=== PATIENT | male | born 1985 | race Caucasian/White ===

== ENCOUNTER 2021-06-16 16:25 | Inpatient (IN) | payer MEDICAID ==
[~2021-06-16] VITALS: Ht 180.3 cm; Wt 183.7 kg
[2021-06-16] MEDS ORDERED: IOHEXOL-350 100 ML BOTTLE ONE (17:11)
[2021-06-16] MEDS ORDERED: SODIUM CHLORIDE 0.9% 1,000 ML IV ONE (17:15)
[2021-06-16] MEDS ORDERED: LABETALOL 5MG/ML SYR 20 MG/4 ML SYRINGE IV ONE (17:15)
[2021-06-16] MEDS ORDERED: INDOMETHACIN 25MG CAPSULE PO ONE (17:15)
[2021-06-16 17:22] LABS: BASOPHILS % 0.5 % (0.0-2.0); EOSINOPHILS % 0.5 % (0.0-5.0); HEMATOCRIT. 42.3 % (42.0-52.0); HEMOGLOBIN. 15.2 g/dL (14.0-18.0); LYMPHOCYTES % 19.3 % (20.0-50.0); MEAN CORPUSCULAR HEMOGLOBIN 31.1 pg (28.0-32.0); MEAN CORPUSCULAR VOLUME 86.7 fL (80.0-94.0); MEAN PLATELET VOLUME 9.3 fl (7.4-10.4); MONOCYTES % 3.5 % (2.0-8.0); NEUTROPHILS % 76.2 % (40.0-76.0); PLATELET 213 x1000/uL (130-400); RED BLOOD CELL COUNT 4.89 mill/uL (4.7-6.1); RED CELL DISTRIBUTION WIDTH 13.4 % (11.6-14.6)
[2021-06-16] MEDS ORDERED: LABETALOL 5MG/ML SYR 20 MG/4 ML SYRINGE IV NR (17:30)
[2021-06-16 17:49] LABS: CHLORIDE 104 mEq/L (98-107)
[2021-06-16 17:53] LABS: ETHANOL BLOOD < 10 mg/dL
[2021-06-16 19:09] LABS: CLARITY URINE CLEAR (CLEAR); COLOR URINE YELLOW (YELLOW); KETONES URINE 1+ (NEGATIVE); LEUKOCYTE ESTERASE URINE NEGATIVE (NEGATIVE); NITRITE URINE NEGATIVE (NEGATIVE); OCCULT BLOOD URINE NEGATIVE (NEGATIVE); PH URINE 5.5 (4.5-8.0); PROTEIN URINE 2+ (NEGATIVE); SPECIFIC GRAVITY URINE 1.048 (1.005-1.030); UROBILINOGEN URINE 0.2 E.U./dL (0.2-1.0)
[2021-06-16 19:28] LABS: *AMPHETAMINES SCREEN URINE NEGATIVE (NEGATIVE); *BARBITURATES SCREEN URINE NEGATIVE (NEGATIVE); *BENZODIAZEPINES SCREEN URINE NEGATIVE (NEGATIVE); *COCAINE SCREEN URINE NEGATIVE (NEGATIVE); METHADONE URINE SCREEN NEGATIVE (NEGATIVE); OPIATES URINE SCREEN NEGATIVE (NEGATIVE); PHENCYCLIDINE URINE SCREEN NEGATIVE (NEGATIVE)
[2021-06-16 19:29] LABS: CANNABINOID URINE SCREEN NEGATIVE (NEGATIVE)
[2021-06-17] MEDS ORDERED: HYDROCODONE/ACETAMINOPHEN 5/325MG TABLET PO PRN (01:45)
[2021-06-17] MEDS ORDERED: DIPHENHYDRAMINE 50MG/ML VIAL IV PRN (01:45)
[2021-06-17] MEDS ORDERED: LORAZEPAM 0.5MG TABLET PO PRN (01:45)
[2021-06-17] MEDS ORDERED: GUAIFENESIN 200MG/10ML SUGAR FREE UDC PO PRN (01:45)
[2021-06-17] MEDS ORDERED: ONDANSETRON HCL 4MG/2ML INJ IV PRN (01:45)
[2021-06-17] MEDS ORDERED: ACETAMINOPHEN 325MG TABLET PO PRN ×2 (01:45)
[2021-06-17] MEDS ORDERED: IPRATROPIUM/ALBUTEROL 0.5-3(2.5)MG/3ML NEB HHN PRN (01:45)
[2021-06-17] MEDS ORDERED: ACETAMINOPHEN 650MG SUPP PR PRN ×2 (01:45)
[2021-06-17] MEDS ORDERED: MAGNESIUM/ALUMINUM HYDROXIDE/SIMETHICONE 30ML UDC PO PRN (01:45)
[2021-06-17] MEDS ORDERED: DOCUSATE SODIUM 100MG CAPSULE PO PRN (01:45)
[2021-06-17] MEDS ORDERED: CLONIDINE 0.1MG TABLET PO PRN (01:45)
[2021-06-17] MEDS ORDERED: DEXAMETHASONE 4MG TABLET PO SCH (02:00)
[2021-06-17 02:05] VITALS: BP 173/102
[2021-06-17] MEDS ORDERED: HYDRALAZINE 20MG/ML VIAL IV PRN (02:15)
[2021-06-17] MEDS ORDERED: NALOXONE HCL 0.4 MG/ML 1ML VIAL IV PRN (02:30)
[2021-06-17] MEDS: AMLODIPINE 5MG TABLET PO SCH ×2 (02:54→09:37)
[2021-06-17 04:30] VITALS: BP 155/89
[2021-06-17 08:15] VITALS: BP 173/78
[2021-06-17] MEDS ORDERED: ASPIRIN 81MG TABLET PO SCH (09:00)
[2021-06-17] MEDS: INDOMETHACIN 25MG CAPSULE PO SCH ×2 (09:36→14:39)
[2021-06-17 10:18] LABS: BASOPHILS % 0.1 % (0.0-2.0); EOSINOPHILS % 0.1 % (0.0-5.0); HEMATOCRIT. 44.1 % (42.0-52.0); HEMOGLOBIN. 15.6 g/dL (14.0-18.0); LYMPHOCYTES % 16.3 % (20.0-50.0); MEAN CORPUSCULAR HEMOGLOBIN 30.9 pg (28.0-32.0); MEAN CORPUSCULAR VOLUME 87.3 fL (80.0-94.0); MEAN PLATELET VOLUME 9.2 fl (7.4-10.4); MONOCYTES % 0.7 % (2.0-8.0); NEUTROPHILS % 82.8 % (40.0-76.0); PLATELET 242 x1000/uL (130-400); RED BLOOD CELL COUNT 5.05 mill/uL (4.7-6.1); RED CELL DISTRIBUTION WIDTH 13.5 % (11.6-14.6)
[2021-06-17 10:26] LABS: CHLORIDE 107 mEq/L (98-107)
[2021-06-17 10:41] LABS: CREATINE KINASE 293 IU/L (39-308)
[2021-06-17 10:42] LABS: HDL CHOLESTEROL 34 mg/dL (40-59)
[2021-06-17 10:43] LABS: T4 FREE 0.96 ng/dL (0.76-1.46)
[2021-06-17 10:49] LABS: LDL CHOLESTEROL 158 mg/dL (5-100)
[2021-06-17 11:25] VITALS: BP 159/86
[2021-06-17 15:50] VITALS: BP 149/80
[2021-06-17] MEDS ORDERED: LOSA25TA26 MT (16:07)
[2021-06-17] MEDS ORDERED: LIP40 PO (16:07)
[2021-06-17] MEDS ORDERED: AMLO5TAB88 PO (16:07)
[2021-06-17 17:35] VITALS: BP 149/80
[2021-06-17] MEDS ORDERED: ATORVASTATIN CALCIUM 40MG TABLET PO SCH (21:00)
== END 2021-06-17 18:33 | disposition home or self-care (01) | DRG 54 ==
LOC: ER 16:25 → MICUSO 23:23 → EDBEDREQTM 23:26 → EDBEDREQ 23:26 → 6WST 06-17 02:46
PROVIDERS: ADMIT Family Medicine Adult Medicine; ATTEND Family Medicine Adult Medicine
DX: G44.099 Other trigeminal autonomic cephalgias (TAC), not intractable (principal); I42.9 Cardiomyopathy, unspecified; Z20.822 Contact with and (suspected) exposure to COVID-19; E66.01 Morbid (severe) obesity due to excess calories; I10 Essential (primary) hypertension; Z68.43 Body mass index [BMI] 50.0-59.9, adult
CPT/HCPCS: 36415; 71045; 80053; 80061; 80305; 80320; 81003; 82550; 82962; 84439; 84443; 84484; 85025; 85651; 86140; 87426; 93005; 99291; J3490; J7030; J8540; Q9967; G0480